=== PATIENT | female | born 1980 | race American Indian/Alaskan Native ===

== ENCOUNTER 2019-02-24 09:59 | Outpatient (CLI) | payer BC ==
--- NOTE | 2019-02-25 09:28 | Mammography Report ---
DIGITAL SCREENING MAMMOGRAM WITH CAD, 02/24/2019 INDICATION: Routine screening mammography. History of a right benign needle biopsy 07/30/2015 TECHNIQUE: Digital bilateral 2D mammography was obtained in the craniocaudal and mediolateral obliq ue projections. This examination was interpreted with the benefit of Computer-Aided Detection analysi s. COMPARISON: 07/30/2015 right mammogram but no left comparison. FINDINGS: Breast Density: There are scattered areas of fibroglandular density. There is no evidence of dominant mass, suspicious calcifications or architectural distortion in eithe r breast. A right upper outer biopsy clip. IMPRESSION: No mammographic evidence of malignancy. Follow up recommendation: Routine yearly BI-RADS Category 1: Negative. A "normal" or negative report should not discourage follow up or biopsy of a clinically significant f inding. A written summary of these findings will be mailed to the patient. The patient will be entered into a mammography reporting system which will generate a reminder letter for the patient's next appointmen t at the appropriate interval. The [employer] recommends yearly mammograms starting at age 40 and continuing as l terrence as a woman is in good health. Breast MRI is recommended for women with an approximate 20-25% or greater lifetime risk of breast cancer, including women with a strong family history of breast or ova lona cancer or who have been treated for Hodgkin's disease. Signer Name: Chan Medina MD Signed: 02/25/2019 9:23 AM Workstation Name: [id number]
== END 2019-02-24 10:00 | disposition home or self-care (01) ==
LOC: SPVWC 09:59
PROVIDERS: ATTEND Obstetrics & Gynecology
DX: Z12.31 Encounter for screening mammogram for malignant neoplasm of breast (principal)
CPT/HCPCS: 77067

== ENCOUNTER 2020-01-17 23:02 | Emergency (ER) | payer BC ==
[2020-01-17 23:46] LABS: Basophils % (Auto) 0.3 % (0.0-1.8); Eosinophils % (Auto) 0.4 % (0.0-4.3); Hematocrit 35.8 % (30.3-42.9); Hemoglobin 11.7 gm/dl (10.1-14.3); Lymphocytes # (Auto) 2.3 K/mm3 (1.2-5.4); Lymphocytes % (Auto) 36.9 % (13.4-35.0); Mean Corpuscular HGB Conc 33 % (30-34); Mean Corpuscular Volume 95 fl (79-97); Monocytes # (Auto) 0.6 K/mm3 (0.0-0.8); Monocytes % (Auto) 9.4 % (0.0-7.3); Platelet Count 346 K/mm3 (140-440); Red Blood Count 3.77 M/mm3 (3.65-5.03); Red Cell Distribution Width 12.7 % (13.2-15.2)
[2020-01-18 00:03] LABS: BUN/Creatinine Ratio 6; Blood Urea Nitrogen 4 mg/dL (7-17); Calcium 9.2 mg/dL (8.4-10.2); Hemolysis Index 7
--- NOTE | 2020-01-18 00:34 | XRay Report ---
CHEST 1 VIEW INDICATION / CLINICAL INFORMATION: Chest Pain. COMPARISON: None available. FINDINGS: SUPPORT DEVICES: None. HEART / MEDIASTINUM: No significant abnormality. LUNGS / PLEURA: No significant pulmonary or pleural abnormality.. No pneumothorax. ADDITIONAL FINDINGS: No significant additional findings. IMPRESSION: 1. No acute findings. Signer Name: Noe Bell MD Signed: 01/18/2020 12:29 AM Workstation Name: [id number]
--- NOTE | 2020-01-18 05:09 | Emergency Department Report ---
ED Chest Pain HPI - General Chief Complaint: Chest Pain Stated Complaint: CHEST PAIN Time Seen by Provider: 01/18/20 04:52 Source: patient Mode of arrival: Ambulatory Limitations: No Limitations - History of Present Illness Initial Comments: The patient was evaluated in the emergency department for symptoms described in the history of present illness. He/she was evaluated in the context of the global COVID-19 pandemic, which necessitated consideration that the patient might be at risk for infection with the virus that causes COVID-19. [facility] protocols and algorithms that pertain to the evaluation of patients at risk for COVID-19 are in a state of rapid change based on information released by regulatory bodies including the CDC and federal and state organizations. These policies and algorithms were followed during the patient's care in the emergency department. Please note that these policies, procedures and recommendations changed on a rapid basis. 39-year-old -[place] female presents to the emergency room for 3-day history of mid sternal chest pain that radiates to the back and left tingling in her arm and jaw. Patient states that the pain is intermittent and it feels like pressure then it pinches intermittently. Patient states his been taking aspirin and Tylenol but nothing seems to help. Patient states nothing makes it worse nothing makes it better. She does report she is on control Dabo. She s tarted to have a little nausea in the waiting room but no vomiting fever chills abdominal pain. She denies any past medical history currently takes no medications on a daily basis and has no known drug allergies. Patient does report she has an appointment on Sunday at [facility] internal medicine in [place]. Complaint: chest pain - Related Data Previous Rx's Medication Instructions Recorded Last Taken Type Ibuprofen [Motrin 800 MG tab] 800 mg PO Q8HR PRN #21 tablet 01/18/20 Unknown Rx predniSONE [Deltasone] 20 mg PO QDAY #5 tab 01/18/20 Unknown Rx Allergies Allergy/AdvReac Type Severity Reaction Status Date / Time No Known Allergies Allergy Unverified 01/17/20 23:09 Heart Score - HEART Score History: Slightly suspicious EKG: Normal Age: < 45 Risk factors: No known risk factors Troponin: < normal limit HEART Score: 0 ED Review of Systems ROS: Stated complaint: CHEST PAIN Other details as noted in HPI Comment: All other systems reviewed and negative ED Past Medical Hx - Past Medical History Previous Medical History?: No - Surgical History Past Surgical History?: Yes Additional Surgical History: C-Sec X 1 - Social History Smoking Status: Never Smoker Substance Use Type: None - Medications Home Medications: Home Medications Medication Instructions Recorded Confirmed Last Taken Type Ibuprofen [Motrin 800 MG tab] 800 mg PO Q8HR PRN #21 tablet 01/18/20 Unknown Rx predniSONE [Deltasone] 20 mg PO QDAY #5 tab 01/18/20 Unknown Rx ED Physical Exam - General Limitations: No Limitations General appearance: alert, in no apparent distress - Head Head exam: Present: atraumatic, normocephalic - Eye Eye exam: Present: normal appearance - ENT ENT exam: Present: normal exam, mucous membranes moist - Neck Neck exam: Present: normal inspection, full ROM - Respiratory Respiratory exam: Present: normal lung sounds bilaterally, chest wall tenderness. Absent: respiratory distress, wheezes - Cardiovascular Cardiovascular Exam: Present: regular rate, normal rhythm. Absent: systolic murmur, diastolic murmur, rubs, gallop - Neurological Exam Neurological exam: Present: alert, oriented X3, normal gait - Psychiatric Psychiatric exam: Present: normal affect, normal mood - Skin Skin exam: Present: warm, dry, intact, normal color. Absent: rash ED Course Vital Signs 01/17/20 23:07 Temperature 99.1 F Pulse Rate 109 H Respiratory 18 Rate Blood Pressure 175/108 O2 Sat by Pulse 100 Oximetry JERMAINE score - Jermaine Score Age > 65: (0) No Aspirin use within the Past 7 Days: (0) No 3 or more CAD Risk Factors: (0) No 2 or more Angina events in past 24 hrs: (0) No Known CAD with more than 50% Stenosis: (0) No Elevated Cardiac Markers: (0) No ST Deviation Greater than 0.5mm: (0) No JERMAINE Score: 0 ED Medical Decision Making - Lab Data Result diagrams: 01/17/20 23:12 01/17/20 23:12 - Radiology Data Radiology results: report reviewed Patient: BOBBY BURGOS MR#: [id number] : 1980 Acct:[id number] Age/Sex: 39 / F ADM Date: 01/17/20 Loc: ED Attending Dr: Ordering Physician: ED MD EMILY Date of Service: 10/17/20 Procedure(s): XR chest 1V ap Accession Number(s): [id number] cc: ED DOC, Fluoro Time In Minutes: CHEST 1 VIEW INDICATION / CLINICAL INFORMATION: Chest Pain. COMPARISON: None available. FINDINGS: SUPPORT DEVICES: None. HEART / MEDIASTINUM: No significant abnormality. LUNGS / PLEURA: No significant pulmonary or pleural abnormality.. No pneumothorax. ADDITIONAL FINDINGS: No significant additional findings. IMPRESSION: 1. No acute findings. Signer Name: Noe Bell MD Signed: 01/18/2020 12:29 AM Workstation Name: [id number] Transcribed By: ASIYA Dictated By: Noe Bell MD Electronically Authenticated By: Noe Bell MD Signed Date/Time: 01/18/2028 DD/ TD/TT: - Medical Decision Making 39-year-old -[place] female presents to the emergency room for 3-day history of mid sternal chest pain that radiates to the back and left tingling in her arm and jaw. Patient states that the pain is intermittent and it feels like pressure then it pinches intermittently. Patient states his been taking aspirin and Tylenol but nothing seems to help. Patient states nothing makes it worse nothing makes it better. She does report she is on control Dabo. She started to have a little nausea in the waiting room but no vomiting fever chills abdominal pain. She denies any past medical history currently takes no medications on a daily basis and has no known drug allergies. Patient does report she has an appointment on Sunday at [facility] internal medicine in [place]. Chest x-ray is negative for any acute findings, EKG normal sinus rhythm 2- troponins CBC CMP is within normal limits. On physical examination chest pain was reproducible. I discussed with patient that I do not feel that this is anything cardiac. Heart score 0 JERMAINE 0. I recommend ibuprofen and a few days of steroids to see if this helps. I discussed the patient to take all her information to her primary care provider's appointment on Sunday. Critical care attestation.: If time is entered above; I have spent that time in minutes in the direct care of this critically ill patient, excluding procedure time. ED Disposition Clinical Impression: Chest wall tenderness, Chest pain, atypical Disposition: TO HOME OR SELFCARE Is pt being admited?: No Does the pt Need Aspirin: No Condition: Stable Instructions: Chest Pain (ED) Additional Instructions: Chest x-ray is negative labs are within normal limits EKG is within normal limits. I would like for her to try taking the medication to see if that helps with the pain. Please take your studies and information to your primary care provider on Sunday. By all means return back to the emergency room if any worsening symptoms. Prescriptions: predniSONE [Deltasone] 20 mg PO QDAY #5 tab Ibuprofen [Motrin 800 MG tab] 800 mg PO Q8HR PRN #21 tablet PRN Reason: Pain , Severe (7-10) Referrals: [facility] [Provider Group] - 3-5 Days Forms: Work/School Release Form(ED)
[2020-01-18 06:35] VITALS: BP 130/80
== END 2020-01-18 06:36 | disposition home or self-care (01) ==
LOC: ED 23:02
DX: R07.89 Other chest pain (principal); M54.6 Pain in thoracic spine; R20.2 Paresthesia of skin; Z98.890 Other specified postprocedural states; Z79.1 Long term (current) use of non-steroidal anti-inflammatories (NSAID); Z79.899 Other long term (current) drug therapy
CPT/HCPCS: 36415; 71045; 80048; 84484; 84703; 85025; 93005

== ENCOUNTER 2020-02-03 10:55 | Outpatient (CLI) | payer BC ==
--- NOTE | 2020-02-03 13:42 | Ultrasound Report ---
BILATERAL DIGITAL DIAGNOSTIC MAMMOGRAM WITH CAD , 02/03/2020 RIGHT LIMITED BREAST ULTRASOUND CLINICAL INFORMATION / INDICATION: Right breast lump. TECHNIQUE: Digital bilateral mammographic imaging was performed. Spot compression views were obtained . Limited ultrasound was performed. This examination was interpreted with the benefit of Computer-Aid ed Detection (CAD) analysis. COMPARISON: Bilateral mammography 02/24/19. FINDINGS: Breast Density: There are scattered areas of fibroglandular density. MAMMOGRAPHIC FINDINGS: No dominant mass, suspicious calcifications, or architectural distortion in ei ther breast. There is a right breast clip. No abnormality is seen in the area of clinical concern on spot compression views of the right breast. ULTRASOUND FINDINGS: Targeted ultrasound evaluation was performed of the area of interest. There is no evidence of a cystic or solid mass. No posterior shadowing, distortion or other abnormality is se en. IMPRESSION: No mammographic or sonographic evidence of malignancy. Further evaluation of any palpable abnormality should be based on clinical findings. Follow up recommendation: Routine yearly BI-RADS Category 2: Benign. A "normal" or negative report should not discourage follow up or biopsy of a clinically significant f inding. A written summary of these findings will be mailed to the patient. The patient will be entered into a mammography reporting system which will generate a reminder letter for the patient's next appointmen t at the appropriate interval. According to the [employer], yearly mammograms are recommended starting at age 40 and continuing as long as a woman is in good health. Breast MRI is recommended for women with an diana roximately 20-25% or greater lifetime risk of breast cancer, including women with a strong family his tory of breast or ovarian cancer and women who have been treated for Hodgkin's disease. Signer Name: Mane Peres MD Signed: 02/03/2020 1:37 PM Workstation Name: [id number]
== END 2020-02-03 10:56 | disposition home or self-care (01) ==
LOC: SPVWC 10:55
PROVIDERS: ATTEND Urology
DX: N63.0 Unspecified lump in unspecified breast (principal)
CPT/HCPCS: 77066

== ENCOUNTER 2020-02-06 07:29 | Outpatient (CLI) | payer BC ==
--- NOTE | 2020-02-06 08:36 | Ultrasound Report ---
ULTRASOUND ABDOMEN, COMPLETE INDICATION: EPIGASTRIC PAIN, FUNCTIONAL DYSPEPSIA. COMPARISON: No relevant prior imaging study available. FINDINGS: Pancreas: No significant abnormality. Abdominal Aorta: No significant abnormality. IVC: No significant abnormality. Liver: The liver measures 14.3 cm in length. No significant abnormality. Normal hepatopedal blood fl ow in the main portal vein. Gallbladder: No significant abnormality. Bile ducts: No significant abnormality. The proximal common bile duct is normal caliber measuring 2-3 mm in diameter. There is mild dilatation of the distal common bile duct measuring 7.4 mm although no obstructing lesion is appreciated on ultrasound. Kidneys: Right: 9.4 cm in length. No significant abnormality. Left: 9.9 cm in length. No signific ant abnormality. Spleen: No significant abnormality. Free fluid: None. Additional Findings: None. IMPRESSION: There is mild dilatation of the distal common bile duct as described above. No cholelithiasis or chol edocholithiasis is appreciated. Unremarkable biliary system otherwise. Signer Name: Dalton Andrade Jr, MD Signed: 02/06/2020 8:32 AM Workstation Name: [id number]
== END 2020-02-06 07:30 | disposition home or self-care (01) ==
LOC: US 07:29
PROVIDERS: ATTEND Internal Medicine Gastroenterology
DX: K30 Functional dyspepsia (principal)
CPT/HCPCS: 76700

== ENCOUNTER 2021-03-21 08:31 | Outpatient (CLI) | payer BC ==
--- NOTE | 2021-03-22 14:01 | Mammography Report ---
DIGITAL SCREENING MAMMOGRAM WITH CAD, 03/21/2021 CLINICAL INFORMATION / INDICATION: Routine screening TECHNIQUE: Digital bilateral 2D mammography was obtained in the craniocaudal and mediolateral obliqu e projections. This examination was interpreted with the benefit of Computer-Aided Detection analysis . COMPARISON: 02/24/2019 FINDINGS: Breast Density: There are scattered areas of fibroglandular density. No dominant mass, suspicious calcifications, or architectural distortion in the right breast. Right biopsy changes are again seen. On cc view in the posterior central medial aspect of the left br east, increasing density is seen with questionable architectural distortion. IMPRESSION: Possible increasing density and distortion on the left Follow up recommendation: Left spot compression views and ultrasound if needed BI-RADS Category 0: INCOMPLETE. Needs additional imaging evaluation and/or prior mammograms for shara cooper. A "normal" or negative report should not discourage follow up or biopsy of a clinically significant f inding. A written summary of these findings will be mailed to the patient. The patient will be entered into a mammography reporting system which will generate a reminder letter for the patient's next appointmen t at the appropriate interval. The [employer] recommends yearly mammograms starting at age 40 and continuing as l terrence as a woman is in good health. Breast MRI is recommended for women with an approximate 20-25% or greater lifetime risk of breast cancer, including women with a strong family history of breast or ova lona cancer or who have been treated for Hodgkin's disease. Signer Name: Ivan Moe MD Signed: 03/22/2021 1:57 PM Workstation Name: [id number]
== END 2021-03-21 08:32 | disposition home or self-care (01) ==
LOC: SPVWC 08:31
PROVIDERS: ATTEND Family Medicine
DX: Z12.31 Encounter for screening mammogram for malignant neoplasm of breast (principal); N64.89 Other specified disorders of breast
CPT/HCPCS: 77067

== ENCOUNTER 2021-05-04 08:00 | Outpatient (CLI) | payer BC ==
--- NOTE | 2021-05-04 10:10 | Mammography Report ---
LEFT DIGITAL DIAGNOSTIC MAMMOGRAM WITH CAD CONVENTIONAL, 05/04/2021 LEFT LIMITED BREAST ULTRASOUND CLINICAL INFORMATION / INDICATION: Abnormal screening mammogram TECHNIQUE: Digital left mammographic imaging was performed. Spot compression views were obtained. Heller ited ultrasound was performed. This examination was interpreted with the benefit of Computer-Aided De tection (CAD) analysis. COMPARISON: Mammography 03/21/2021, 02/03/2020, 02/24/2019 FINDINGS: Breast Density: There are scattered areas of fibroglandular density. MAMMOGRAPHIC FINDINGS: The density in question, seen only on cc view, improves with additional views becoming more similar to older studies. ULTRASOUND FINDINGS: Targeted ultrasound evaluation was performed of the area of interest. No abnorma lities are seen in the region of concern. IMPRESSION: No mammographic or sonographic evidence of malignancy. Follow up recommendation: Routine yearly BI-RADS Category 1: NEGATIVE. A "normal" or negative report should not discourage follow up or biopsy of a clinically significant f inding. A written summary of these findings will be mailed to the patient. The patient will be entered into a mammography reporting system which will generate a reminder letter for the patient's next appointmen t at the appropriate interval. According to the [employer], yearly mammograms are recommended starting at age 40 and continuing as long as a woman is in good health. Breast MRI is recommended for women with an diana roximately 20-25% or greater lifetime risk of breast cancer, including women with a strong family his tory of breast or ovarian cancer and women who have been treated for Hodgkin's disease. Signer Name: Ivan Moe MD Signed: 05/04/2021 10:06 AM Workstation Name: [id number]
== END 2021-05-04 08:01 | disposition home or self-care (01) ==
LOC: MAMMO 08:00
PROVIDERS: ATTEND Family Medicine
DX: N64.89 Other specified disorders of breast (principal)